=== PATIENT | female | born 1990 | race Hispanic/Latino ===

== ENCOUNTER 2024-06-07 06:36 | Emergency (ER) | payer SELFPAY ==
[~2024-06-07] VITALS: Ht 165.1 cm; Wt 89.4 kg
[2024-06-07 06:42] VITALS: PULSE 92; RESP 18; TEMP 98.9; O2SAT 100
[2024-06-07] MEDS ORDERED: ONDANSETRON ODT4 MG PO (07:01)
[2024-06-07] MEDS ORDERED: BROMFED DM COU118 ML PO (07:01)
[2024-06-07] MEDS: ONDANSETRON HCL 4 MG ORAL DISINTEGRATING TAB PO ONE (07:12)
== END 2024-06-07 07:44 | disposition home or self-care (01) ==
LOC: FSED 06:56
DX: R05.9 Cough, unspecified (principal); U07.1 COVID-19; R11.2 Nausea with vomiting, unspecified; F17.210 Nicotine dependence, cigarettes, uncomplicated
CPT/HCPCS: 0223U; 87400; 99283; Q0162

== ENCOUNTER 2024-09-20 17:32 | Emergency (ER) | payer SELFPAY ==
[~2024-09-20] VITALS: Ht 157.5 cm; Wt 89.0 kg
[~2024-09-20 17:32] MED LIST: BROMFED DM COU118 ML PO; ONDANSETRON ODT4 MG PO
[2024-09-20 17:50] VITALS: PULSE 93; RESP 16; TEMP 98.1
[2024-09-20] MEDS: SODIUM CHLORIDE 0.9% 1000ML 1,000 ML IV ONE (20:03)
[2024-09-20] MEDS: KETOROLAC TROMETHAMINE 30 MG/ML VIAL IV STA (20:38)
[2024-09-20] MEDS ORDERED: ONDANSETRON ODT4 MG PO (21:16)
[2024-09-20 21:26] VITALS: BP 119/62; PULSE 65; RESP 15; TEMP 98.3; O2SAT 100
== END 2024-09-20 21:28 | disposition home or self-care (01) ==
LOC: FSED 18:01
DX: R53.1 Weakness (principal); R11.0 Nausea; R42 Dizziness and giddiness; R51.9 Headache, unspecified; R53.83 Other fatigue; Z11.52 Encounter for screening for COVID-19
CPT/HCPCS: 0223U; 80053; 81003; 81025; 83518; 85025; 87400; 99283; J1885; J7030

== ENCOUNTER 2024-11-29 13:45 | Emergency (ER) | payer SELFPAY ==
[~2024-11-29] VITALS: Ht 160 cm; Wt 88.1 kg
[2024-11-29] MEDS ORDERED: IOPAMIDOL 370 MG/ML 100 ML INFUS..BTL INJ ONE (14:24)
[2024-11-29] MEDS: SODIUM CHLORIDE 0.9% 1000ML 1,000 ML IV SCH (14:43)
[2024-11-29] MEDS: FAMOTIDINE 20 MG/2 ML VIAL IV STA (14:43)
[2024-11-29] MEDS: KETOROLAC TROMETHAMINE 30 MG/ML VIAL IV STA (14:43)
[2024-11-29 16:27] VITALS: PULSE 86; RESP 16; TEMP 98.3; O2SAT 100
== END 2024-11-29 16:27 | disposition home or self-care (01) ==
LOC: FSED 13:47
DX: R10.10 Upper abdominal pain, unspecified (principal); R31.21 Asymptomatic microscopic hematuria; D64.9 Anemia, unspecified
CPT/HCPCS: 74177; 80048; 80076; 81003; 81025; 85025; 96374; 96375; 99284; J1885; J7030; Q9967

== ENCOUNTER 2025-05-18 14:47 | Emergency (ER) | payer OTHER ==
[~2025-05-18] VITALS: Ht 165.1 cm; Wt 90.4 kg
[2025-05-18] MEDS ORDERED: MULTI-VITAMIN1 EACH PO (17:07)
[2025-05-18 17:17] VITALS: PULSE 72; RESP 16; TEMP 98.2; O2SAT 100
== END 2025-05-18 17:17 | disposition home or self-care (01) ==
LOC: FSED 14:58
DX: R53.83 Other fatigue (principal); D64.9 Anemia, unspecified; R53.1 Weakness; H53.8 Other visual disturbances
CPT/HCPCS: 80053; 80307; 81003; 81025; 85025; 99284